=== PATIENT | male | born 1950 | race Hispanic/Latino ===

== ENCOUNTER 2019-03-17 13:29 | Emergency (ER) | payer OTHER ==
[2019-03-17 14:15] LABS: #Basophils 0.1 thou/uL (0.0-0.2); #Eosinphils 0.1 thou/uL (0.0-0.7); #Lymphocytes 0.9 thou/uL (1.20-3.40); #Monocytes 0.7 thou/uL (0.11-0.59); #Neutrophils 6.6 thou/uL (1.40-6.50); %Basophils 0.8 % (0.0-1.0); %Eosinophils 1.3 % (0.0-10.0); %Lymphocytes 10.7 % (21.0-51.0); %Monocytes 7.9 % (0.0-10.0); %Neutrophils 79.3 % (42.0-75.0); Hemoglobin 11.8 g/dL (14.0-18.0); Mean Corpuscular Hemoglobin 31.5 pg (27.0-31.0); Mean Corpuscular Volume 90.2 fL (78.0-98.0); Mean Platelet Volume 8.6 fL (7.4-10.4); Platelet Count 198 thou/uL (130-400); RBC Distribution Width 11.4 % (11.5-14.5); Red Blood Cell (RBC) Count 3.73 mill/uL (4.70-6.10); White Blood Cell (WBC) Count 8.3 thou/uL (4.8-10.8)
[2019-03-17 16:16] LABS: Albumin 4.7 g/dL (3.4-4.8)
[2019-03-17 16:18] LABS: Calcium 10.1 mg/dL (7.8-10.44); Chloride 105 mmol/L (98-107); Potassium 5.2 mmol/L (3.5-5.1); Sodium 136 mmol/L (136-145)
[2019-03-17 16:19] LABS: Globulin 3.6 g/dL (2.4-3.5); Glucose 149 mg/dL (80-115); Protein, Total 8.3 g/dL (5.8-8.1)
[2019-03-17 16:20] LABS: Carbon Dioxide 23 mmol/L (23-31)
[2019-03-17 16:21] LABS: Anion Gap 13 mmol/L (10-20); Bilirubin, Total 0.4 mg/dL (0.2-1.2)
[2019-03-17 16:22] LABS: Alkaline Phosphatase 74 U/L (40-150)
[2019-03-17 16:23] LABS: BUN (Urea Nitrogen) 40 mg/dL (8.4-25.7); Calc. Creatinine Clearance 0 mL/min (70-130); Estimated GFR-MDRD 37
[2019-03-17 16:24] LABS: AST (SGOT) 16 U/L (5-34)
[2019-03-17 16:25] LABS: ALT (SGPT) 13 U/L (8-55)
[2019-03-17 18:02] LABS: Bilirubin Negative (Negative); Blood, Urine Negative (Negative); Clarity CLEAR (Clear); Glucose, Urine (Dipstick) Negative (Negative); Leukocyte Negative (Negative); Nitrite Negative (Negative); Protein, Urine (Dipstick) Trace mg/dL (Neg-Trace); Specific Gravity, Urine 1.013 (1.002-1.036); Urobilinogen 0.2 mg/dL (0.2-1.0)
--- NOTE | 2019-03-17 18:28 | RAD ---
AP CHEST: 03/17/19 HISTORY: Dizziness. The lungs are clear. Heart and mediastinum unremarkable. Vasculature normal. IMPRESSION: No acute finding. POS: [facility]
--- NOTE | 2019-03-18 16:44 | EKG ---
Test Reason : Blood Pressure : / mmHG Vent. Rate : 070 BPM Atrial Rate : 070 BPM P-R Int : 214 ms QRS Dur : 094 ms QT Int : 410 ms P-R-T Axes : 016 -20 038 degrees QTc Int : 442 ms Sinus rhythm with 1st degree A-V block Otherwise normal ECG Confirmed by MARIBELL DE ANDA ([id number]), film editor GOLDIE DOWD ([id number]) on 03/18/2019 4:43:58 PM Referred By: Confirmed By:MARIBELL DE ANDA
== END 2019-03-18 02:00 ==
LOC: ERS 13:29
DX: N17.9 Acute kidney failure, unspecified (principal); I12.9 Hypertensive chronic kidney disease with stage 1 through stage 4 chronic kidney disease, or unspecified chronic kidney disease; N18.9 Chronic kidney disease, unspecified; E87.5 Hyperkalemia; E03.9 Hypothyroidism, unspecified; E11.22 Type 2 diabetes mellitus with diabetic chronic kidney disease; F41.9 Anxiety disorder, unspecified; E78.5 Hyperlipidemia, unspecified; Z79.4 Long term (current) use of insulin
CPT/HCPCS: 36415; 36416; 71045; 80053; 81003; 85025; 93005; 96360